=== PATIENT | male | born 1975 | race Caucasian/White ===

== ENCOUNTER 2025-08-15 06:16 | Outpatient (CLI) | payer MEDICAID ==
[2025-08-15] MEDS ORDERED: LIDOcaine 1%/PF 5ML 10 MG/ML VIAL ONE (06:36)
[2025-08-15] MEDS ORDERED: GADOTERATE MEGLUMINE 7.5 MMOL/15 ML VIAL IV ONE (06:36)
[2025-08-15] MEDS ORDERED: LIDOcaine 1% 30ml preserv. free vial ONE (06:36)
[2025-08-15] MEDS ORDERED: iohexol 300 MG/1 ML 50ml polymer ONE (06:36)
--- NOTE | 2025-08-15 08:45 | RADIOLOGY REPORT ---
ANGIO ARTHROGRAM (A) Date: 08/15/2025 07:20 AM CLINICAL HISTORY: PRIMARY OSTEOARTHRITIS, RIGHT SHOULDER COMPARISON: None PROCEDURE: Verbal and written informed consent were obtained from the patient for the procedure of right shoulder joint fluoroscopically guided arthrogram, after the procedure, risks, and benefits of the procedure were explained to the patient. Risks include bleeding, infection, reaction to injected medications, and damage to surrounding anatomic structures. The patient's questions were answered. The patient's most recent medical history was reviewed. A time out was performed to verify the patient's name, date of , and correct location of the procedure, prior to initiation of the procedure. The patient was placed supine on the fluoroscopic table and the area overlying the right shoulder joint was prepped and draped in the usual sterile fashion. The patient tolerated the procedure well. There were no immediate complications. Home-care instructions were reviewed with the patient prior to the patient's discharge from the fluoroscopy suite. The patient verbally affirmed understanding of these instructions. IMPRESSION: Technically successful fluoroscopically guided RIGHT shoulder joint arthrogram. The patient was transported to MRI for further imaging at the completion of the procedure. D/w Dr. Noyola
--- NOTE | 2025-08-15 14:13 | RADIOLOGY REPORT ---
CLINICAL HISTORY: PRIMARY OSTEOARTHRITIS, RIGHT SHOULDER TECHNIQUE: Multisequence multiplanar MR arthrogram images of the right shoulder were obtained after the uneventful intra-articular administration of dilute gadolinium contrast under fluoroscopic guidance. For details concerning the contrast injection, refer to the separately dictated same-day conventional arthrogram report. COMPARISON: Correlation made to same day arthrogram injection Images. FINDINGS: Acromioclavicular joint: There is moderate acromioclavicular hypertrophy and moderate edema. There is Type 2 acromion. Small amount of fluid in the subacromial / subdeltoid bursa. Rotator cuff tendons: Partial-thickness to near full-thickness articular surface tear of the supraspinatus tendon measuring up to 1.9 cm in greatest AP dimension and approximately 1.8 cm in proximal to distal dimension, somewhat obliquely oriented. There is no contrast in the subacromial / subdeltoid bursa to suggest a full-thickness component of the tear. There is interstitial tear involving the infraspinatus tendon measuring up to 1.1 cm in AP dimension and up to 1.9 cm in proximal to distal dimension extending near the insertion. Portions of the tear involve greater than 50% of the tendon thickness. Mild tendinosis of the distal subscapularis tendon without visualized tear. Teres minor tendon is intact. Biceps tendon: No significant tendinosis. No evidence of attrition or tear. Labrum: There is fraying of the posterior labrum. Bones: Moderate to severe arthritic changes at the glenohumeral joint with moderate to severe joint space narrowing and mild subchondral cystic change. Muscles: Normal muscle bulk. No atrophy. Other: No other significant findings. IMPRESSION: 1. Rotator cuff tendinosis with partial-thickness to near full-thickness articular surface tear of the supraspinatus tendon and partial-thickness interstitial tear of the infraspinatus tendon. 2. Moderate acromioclavicular hypertrophy with small amount of fluid in the subacromial / subdeltoid bursa. No contrast in the subacromial / subdeltoid bursa. 3. Fraying of the posterior labrum. 4. Moderate to severe arthritic changes at the glenohumeral joint.
== END 2025-08-15 23:59 | disposition home or self-care (01) ==
LOC: MRI 06:16
PROVIDERS: ATTEND Pediatrics Sports Medicine
DX: M25.511 Pain in right shoulder (principal); M19.011 Primary osteoarthritis, right shoulder; M75.121 Complete rotator cuff tear or rupture of right shoulder, not specified as traumatic; Z79.899 Other long term (current) drug therapy; Z96.642 Presence of left artificial hip joint; Z98.890 Other specified postprocedural states
CPT/HCPCS: 23350; 73222; 77002; A9575; J2003; J3490; Q9967